=== PATIENT | male | born 1985 | race Caucasian/White ===

== ENCOUNTER 2019-10-01 03:18 | Emergency (ER) | payer MEDICAID, SELFPAY ==
[~2019-10-01] VITALS: Ht 188 cm; Wt 70.5 kg
[2019-10-01 03:29] VITALS: BP 124/80
[2019-10-01] MEDS ORDERED: AMOXICILLIN 500 MG CAPSULE PO STA (03:49)
--- NOTE | 2019-10-01 03:51 | NUR ---
pt presented with c/o DENTAL PAIN BOTTOM RIGHT JAW X1 DAY, REPORTS TAKING PERCOCET 3 HOURS AGO. erp at bedside for eval, awaiting orders
[2019-10-01] MEDS ORDERED: AMOXICILLIN 500 MG CAPSULE ONE (03:54)
[2019-10-01] MEDS ORDERED: IBUPROFEN 600 MG TABLET ONE (03:55)
--- NOTE | 2019-10-01 03:56 | NUR ---
PT MEDICATED PER MAR
[2019-10-01] MEDS ORDERED: IBUPROFEN 600 MG TABLET PO ONE (04:00)
== END 2019-10-01 04:04 | disposition home or self-care (01) ==
LOC: ED 03:50
DX: K08.89 Other specified disorders of teeth and supporting structures (principal)
CPT/HCPCS: 99283